=== PATIENT | female | born 1965 | race Caucasian/White ===

== ENCOUNTER → 2016-11-04 | Outpatient (CLI) | payer BC ==
--- NOTE | 2016-11-04 08:28 | XR ---
EXAMINATION TYPE: XR foot complete RT DATE OF EXAM: 11/04/2016 COMPARISON: NONE HISTORY: Pain TECHNIQUE: Three views are submitted. FINDINGS: The osseous structures are intact and there is mild arthropathy of the first MTP joint. Large plantar calcaneal spur. There is no acute fracture or dislocation. IMPRESSION: 1. No acute fracture or dislocation. If symptoms persist, follow-up exam in 7 to 10 days could be ob tained. 2. Large plantar calcaneal spur.
--- NOTE | 2016-11-09 07:49 | MM ---
Reason for exam: screening (asymptomatic). Last mammogram was performed 16 years and 6 months ago. Physical Findings: A clinical breast exam by your physician is recommended on an annual basis and results should be correlated with mammographic findings. MG Screening Mammo w CAD Bilateral CC and MLO view(s) were taken. No prior studies available for comparison. Finding: There is a typically benign 7 mm oval mass located 11 cm from the nipple in the upper outer quadrant of the left breast consistent with probable lymph node. ASSESSMENT: Probably benign, BI-RAD 3 RECOMMENDATION: Follow-up diagnostic mammogram of the left breast in 6 months.
== END | disposition home or self-care (01) ==
LOC: RADMAMWWP 07:22
PROVIDERS: ATTEND Family Medicine
DX: Z12.31 Encounter for screening mammogram for malignant neoplasm of breast (principal); M77.31 Calcaneal spur, right foot
CPT/HCPCS: 73630; G0202